=== PATIENT | female | born 1960 | race Caucasian/White ===

== ENCOUNTER → 2017-01-18 | Outpatient (REF) | payer OTHER ==
[~2017-01-18] MED LIST: FERR325T3 PO; MULTCAP PO; NORCOTAB PO; OYSCTAB PO; SOMA350T PO; VITA10002 PO; [UNRECOGNIZED DRUG - CODE] PO; valium OR; vitamin D OR
[2017-01-18 12:26] LABS: BASO % 0.6 % (0.0-1.0); EOS # 0.1 K/mm3 (0.0-0.50); EOS % 1.8 % (0.0-3.0); LARGE UNSTAINED CELL # 0.1 K/mm3 (0.0-0.4); LARGE UNSTAINED CELL % 1.9 % (0.0-4.0); LYMPH # 2.7 K/mm3 (1.5-4.5); LYMPH % 40.2 % (24.0-44.0); MEAN CORPUSCULAR HGB CONC 32.8 g/dl (32.0-36.5); MEAN CORPUSCULAR VOLUME 100.6 fl (80.0-96.0); MONO # 0.4 K/mm3 (0.0-0.8); NEUTROPHILS # 3.2 K/mm3 (1.8-7.7); NEUTROPHILS % 49.5 % (36.0-66.0); PLATELET COUNT, AUTOMATED 238 k/mm3 (150-450); RED CELL DISTRIBUTION WIDTH 13.3 % (11.5-14.5); WHITE BLOOD COUNT 6.4 K/mm3 (4.0-10.0)
[2017-01-18 12:58] LABS: ALBUMIN 3.7 GM/DL (3.2-5.2); ALBUMIN/GLOBULIN RATIO 1.32 (1.00-1.93); ALKALINE PHOSPHATASE 75 U/L (45-117); ALT/SGPT 21 U/L (12-78); ANION GAP 7 MEQ/L (8-16); AST/SGOT 15 U/L (15-37); BILIRUBIN,TOTAL 1.3 MG/DL (0.2-1.0); BLOOD UREA NITROGEN 23 MG/DL (7-18); CALCIUM LEVEL 8.3 MG/DL (8.5-10.1); CARBON DIOXIDE LEVEL 28 MEQ/L (21-32); CHLORIDE LEVEL 104 MEQ/L (98-107); CHOLESTEROL LEVEL 152 MG/DL (<200); CREATININE FOR GFR 0.84 MG/DL (0.55-1.02); GLOMERULAR FILTRATION RATE > 60.0 (>51); GLUCOSE, FASTING 81 MG/DL (70-105); POTASSIUM SERUM 4.2 MEQ/L (3.5-5.1); SODIUM LEVEL 139 MEQ/L (136-145); TOTAL PROTEIN 6.5 GM/DL (6.4-8.2); TRIGLYCERIDES LEVEL 73 MG/DL (<150)
[2017-01-18 13:11] LABS: FOLATE > 24.0 NG/ML; VITAMIN B12 LEVEL 1798 PG/ML
== END ==
LOC: M SFHCLERA 10:26
PROVIDERS: ATTEND Family Medicine
DX: I10 Essential (primary) hypertension (principal); E78.2 Mixed hyperlipidemia; E34.9 Endocrine disorder, unspecified; E55.9 Vitamin D deficiency, unspecified; D75.89 Other specified diseases of blood and blood-forming organs

== ENCOUNTER → 2017-02-16 | Outpatient (REF) | payer OTHER | LOC: M SFHCWAGY 13:42 | PROVIDERS: ATTEND Family Medicine | DX: Z12.4 Encounter for screening for malignant neoplasm of cervix (principal) ==

== ENCOUNTER → 2017-02-16 | Outpatient (CLI) | payer OTHER ==
--- NOTE | 2017-02-16 14:35 | REPMRS ---
Patient History The patient states she had a clinical breast exam in 02/2017. Patient is postmenopausal. Family history of breast cancer in paternal aunt at age 50 or over, breast cancer in paternal grandmother at age 50 or over, and breast cancer in maternal grandmother at age 50 or over. Benign cyst aspiration of the left breast, 2005. Digital Woman Screen Mammo: February 16, 2017 - Exam #: [id number] Bilateral CC and MLO view(s) were taken. Technologist: Alena Macedo, Technologist Prior study comparison: March 11, 2014, digital woman screen mammo performed at [facility] [employer] [facility]. January 03, 2013, digital woman screen mammo performed at [facility] [employer] [facility]. FINDINGS: There are scattered fibroglandular densities. There is a fairly symmetric fibroglandular pattern in both breasts. There has been no interval development of masses, areas of architectural distortion or clusters of microcalcifications typical of malignancy. ASSESSMENT: BI-RADS/ACR category 2 mammogram. Benign finding(s). Recommendation Routine screening mammogram of both breasts in 1 year (for women over age 40). This mammogram was interpreted with the aid of an FDA-approved computer-aided dectection system. Electronically Signed By: Allan Taylor MD 02/16/17 [id number]
== END ==
LOC: M WHC 13:10
PROVIDERS: ATTEND Family Medicine
DX: Z12.31 Encounter for screening mammogram for malignant neoplasm of breast (principal); Z78.0 Asymptomatic menopausal state; Z80.3 Family history of malignant neoplasm of breast

== ENCOUNTER → 2017-03-27 | Outpatient (CLI) | payer OTHER ==
--- NOTE | 2017-03-28 02:12 | REP ---
Clinical: Acute knee pain. Technique: AP, lateral, bilateral oblique and sunrise views of the right knee. Findings: Lateral and sunrise views demonstrate sclerosis along the posterior patellar margin with decreased patellofemoral joint space, superior and lateral patellar as well as lateral femoral condylar osteophyte formation suggesting mild/early moderate arthritic degenerative changes. The tibiofemoral joint appears relatively intact and grossly normal for age. No acute fracture or dislocation. Impression: Degenerative changes primarily involving the patellofemoral joint space. Signed by Ayo Solis MD 03/28/2017 02:03 A
== END ==
LOC: M LRY 14:01
PROVIDERS: ATTEND Physician Assistant
DX: M25.561 Pain in right knee (principal); M17.9 Osteoarthritis of knee, unspecified

== ENCOUNTER 2017-06-28 10:22 | Outpatient (RCR) | payer OTHER | END 2017-07-03 | LOC: M PT 10:22 | PROVIDERS: ATTEND Orthopaedic Surgery | DX: Z51.89 Encounter for other specified aftercare (principal); M17.11 Unilateral primary osteoarthritis, right knee; M25.561 Pain in right knee ==

== ENCOUNTER 2017-07-19 13:45 | Outpatient (RCR) | payer OTHER | END 2017-08-02 | LOC: M PT 13:45 | PROVIDERS: ATTEND Orthopaedic Surgery | DX: Z51.89 Encounter for other specified aftercare (principal); M17.11 Unilateral primary osteoarthritis, right knee; M25.561 Pain in right knee ==

== ENCOUNTER 2017-10-12 12:37 | Outpatient (CLI) | payer OTHER ==
[2017-10-12] MEDS: ACETAMINOPHEN TAB 650MG DOSE (2X325MG) PO (13:23)
[2017-10-12] MEDS: NS 1,000 ML IV (13:24)
[2017-10-12] MEDS: inFLIXimab INJECTION 500 MG in NS 200 ML IV (13:24)
== END 2017-10-12 15:45 | disposition home or self-care (01) ==
LOC: M INFU 12:37
DX: L40.50 Arthropathic psoriasis, unspecified (principal); Z79.899 Other long term (current) drug therapy; Z88.5 Allergy status to narcotic agent; Z91.040 Latex allergy status; Z91.048 Other nonmedicinal substance allergy status; Z78.0 Asymptomatic menopausal state; Z98.84 Bariatric surgery status
CPT/HCPCS: J1745

== ENCOUNTER → 2017-11-05 | Outpatient (CLI) | payer OTHER | LOC: M PLARAD 13:24 | DX: G57.00 Lesion of sciatic nerve, unspecified lower limb (principal); M70.51 Other bursitis of knee, right knee; M25.559 Pain in unspecified hip; M70.60 Trochanteric bursitis, unspecified hip; M50.30 Other cervical disc degeneration, unspecified cervical region; M51.34 Other intervertebral disc degeneration, thoracic region; M51.36 Other intervertebral disc degeneration, lumbar region; M51.26 Other intervertebral disc displacement, lumbar region; M51.24 Other intervertebral disc displacement, thoracic region; M50.20 Other cervical disc displacement, unspecified cervical region; M46.1 Sacroiliitis, not elsewhere classified; M79.7 Fibromyalgia; M96.1 Postlaminectomy syndrome, not elsewhere classified; M47.814 Spondylosis without myelopathy or radiculopathy, thoracic region; M47.817 Spondylosis without myelopathy or radiculopathy, lumbosacral region; M47.812 Spondylosis without myelopathy or radiculopathy, cervical region; M54.81 Occipital neuralgia | CPT/HCPCS: 72146 ==

== ENCOUNTER → 2017-11-19 | Outpatient (CLI) | payer OTHER | LOC: M PLARAD 08:58 | DX: M54.17 Radiculopathy, lumbosacral region (principal) | CPT/HCPCS: 72148 ==

== ENCOUNTER 2017-11-28 10:18 | Outpatient (CLI) | payer OTHER ==
[2017-11-28] MEDS: NS 1,000 ML IV (11:07)
[2017-11-28] MEDS: inFLIXimab INJECTION 500 MG in NS 200 ML IV (11:07)
== END 2017-11-28 13:45 | disposition home or self-care (01) ==
LOC: M INFU 10:18
DX: L40.59 Other psoriatic arthropathy (principal); Z79.899 Other long term (current) drug therapy; Z88.5 Allergy status to narcotic agent; Z91.040 Latex allergy status
CPT/HCPCS: J1745

== ENCOUNTER 2018-03-12 14:23 | Outpatient (CLI) | payer OTHER ==
[2018-03-12] MEDS ORDERED: NS 1,000 ML IV (14:45)
[2018-03-12] MEDS: FILTER 1.2 MICRON (ADULT TPN/MANNITOL/REMICADE) XX (14:45)
[2018-03-12] MEDS: ACETAMINOPHEN TAB 650MG DOSE (2X325MG) PO (15:12)
[2018-03-12] MEDS: inFLIXimab INJECTION 500 MG in NS 200 ML IV (15:23)
== END 2018-03-12 18:00 | disposition home or self-care (01) ==
LOC: M INFU 14:23
DX: L40.59 Other psoriatic arthropathy (principal); Z98.84 Bariatric surgery status; Z98.1 Arthrodesis status; Z88.5 Allergy status to narcotic agent; Z91.040 Latex allergy status; Z79.899 Other long term (current) drug therapy
CPT/HCPCS: J1745

== ENCOUNTER 2018-04-30 08:53 | Outpatient (CLI) | payer OTHER ==
[2018-04-30] MEDS: FILTER 1.2 MICRON (ADULT TPN/MANNITOL/REMICADE) XX (08:45)
[2018-04-30 09:24] LABS: HEMOGLOBIN 10.6 g/dl (12.0-15.5); MEAN CORPUSCULAR HEMOGLOBIN 31.4 pg (27.0-33.0); MEAN CORPUSCULAR HGB CONC 33.1 g/dl (32.0-36.5); MEAN CORPUSCULAR VOLUME 94.7 fl (80.0-96.0); PLATELET COUNT, AUTOMATED 231 10^3/uL (150-450); RED BLOOD COUNT 3.38 10^6/uL (4.00-5.40); RED CELL DISTRIBUTION WIDTH 14.4 % (11.5-14.5); RETICULOCYTE # 43.6 10^9/L (17-77); RETICULOCYTE % 1.3 % (0.5-1.5); WHITE BLOOD COUNT 5.2 10^3/uL (4.0-10.0)
[2018-04-30] MEDS: ACETAMINOPHEN TAB 650MG DOSE (2X325MG) PO (09:25)
[2018-04-30] MEDS: NS 1,000 ML IV (09:26)
[2018-04-30] MEDS: inFLIXimab INJECTION 500 MG in NS 200 ML IV (09:32)
[2018-04-30 09:57] LABS: ALBUMIN 3.7 GM/DL (3.2-5.2); ALBUMIN/GLOBULIN RATIO 1.12 (1.00-1.93); ALKALINE PHOSPHATASE 74 U/L (45-117); ALT/SGPT 22 U/L (12-78); ANION GAP 9 MEQ/L (8-16); AST/SGOT 19 U/L (7-37); BILIRUBIN,TOTAL 0.8 MG/DL (0.2-1.0); BLOOD UREA NITROGEN 19 MG/DL (7-18); CALCIUM LEVEL 8.4 MG/DL (8.5-10.1); CARBON DIOXIDE LEVEL 24 MEQ/L (21-32); CHLORIDE LEVEL 111 MEQ/L (98-107); CHOLESTEROL LEVEL 158 MG/DL (<200); CHOLESTEROL RISK RATIO 1.837 (<5); CREATININE FOR GFR 0.73 MG/DL (0.55-1.30); FERRITIN 10 NG/ML (8-252); GLOMERULAR FILTRATION RATE > 60.0 (>51); GLUCOSE, FASTING 87 MG/DL (70-100); HDL CHOLESTEROL 86 MG/DL (>40); NON-HDL-C 72 MG/DL; SODIUM LEVEL 144 MEQ/L (136-145); TRIGLYCERIDES LEVEL 70 MG/DL (<150)
[2018-05-01 08:15] LABS: PTH INTACT 56.8 PG/ML (18.5-88.0)
[2018-05-01 08:40] LABS: FOLATE > 24.0 NG/ML (>5.4); VITAMIN B12 LEVEL > 2000 PG/ML (247-911)
== END 2018-04-30 11:45 | disposition home or self-care (01) ==
LOC: M INFU 08:53
DX: L40.59 Other psoriatic arthropathy (principal); D50.9 Iron deficiency anemia, unspecified; M62.81 Muscle weakness (generalized); Z98.1 Arthrodesis status; Z87.440 Personal history of urinary (tract) infections; Z98.84 Bariatric surgery status; Z79.899 Other long term (current) drug therapy
CPT/HCPCS: J1745

== ENCOUNTER → 2018-06-13 | Outpatient (CLI) | payer OTHER | LOC: M LRY 09:22 | DX: L40.50 Arthropathic psoriasis, unspecified (principal); M19.041 Primary osteoarthritis, right hand; M19.042 Primary osteoarthritis, left hand | CPT/HCPCS: 73130 ==

== ENCOUNTER → 2018-06-13 | Outpatient (REF) | payer OTHER ==
[2018-06-13 11:54] LABS: BASO % 0.7 % (0.0-1.0); EOS # 0.1 10^3/uL (0.0-0.50); EOS % 1.3 % (0.0-3.0); HEMATOCRIT 31.6 % (36.0-47.0); HEMOGLOBIN 10.1 g/dl (12.0-15.5); IMMATURE GRANULOCYTE % 0.3 % (0-3.0); LYMPH # 1.9 10^3/uL (1.5-4.5); LYMPH % 31.4 % (24.0-44.0); MEAN CORPUSCULAR HEMOGLOBIN 31.3 pg (27.0-33.0); MEAN CORPUSCULAR VOLUME 97.8 fl (80.0-96.0); MONO # 0.5 10^3/uL (0.0-0.8); MONO % 8.4 % (0.0-5.0); NEUTROPHILS # 3.5 10^3/uL (1.8-7.7); NEUTROPHILS % 57.9 % (36.0-66.0); PLATELET COUNT, AUTOMATED 261 10^3/uL (150-450); RED BLOOD COUNT 3.23 10^6/uL (4.00-5.40); RED CELL DISTRIBUTION WIDTH 14.6 % (11.5-14.5); WHITE BLOOD COUNT 6.1 10^3/uL (4.0-10.0)
[2018-06-13 12:26] LABS: ERYTHROCYTE SEDIMENTATION RATE 38 mm/hr (0-30)
[2018-06-13 12:42] LABS: ALBUMIN 3.5 GM/DL (3.2-5.2); ALBUMIN/GLOBULIN RATIO 1.09 (1.00-1.93); ALKALINE PHOSPHATASE 73 U/L (45-117); ALT/SGPT 22 U/L (12-78); ANION GAP 6 MEQ/L (8-16); AST/SGOT 17 U/L (7-37); BLOOD UREA NITROGEN 13 MG/DL (7-18); C REACTIVE PROTEIN QUANTITATIV < 0.30 MG/DL (0.00-0.30); CALCIUM LEVEL 8.1 MG/DL (8.5-10.1); CARBON DIOXIDE LEVEL 26 MEQ/L (21-32); CHLORIDE LEVEL 112 MEQ/L (98-107); CREATININE FOR GFR 0.72 MG/DL (0.55-1.30); GLOMERULAR FILTRATION RATE > 60.0 (>51); GLUCOSE, FASTING 78 MG/DL (70-100); POTASSIUM SERUM 4.3 MEQ/L (3.5-5.1); SODIUM LEVEL 144 MEQ/L (136-145); TOTAL PROTEIN 6.7 GM/DL (6.4-8.2)
[2018-06-19 00:12] LABS: HLA-B27 Negative (.)
== END ==
LOC: M SFHCLERA 09:15
DX: L40.50 Arthropathic psoriasis, unspecified (principal)
CPT/HCPCS: 84443

== ENCOUNTER 2018-06-18 08:02 | Outpatient (CLI) | payer OTHER ==
[2018-06-18] MEDS: FILTER 1.2 MICRON (ADULT TPN/MANNITOL/REMICADE) XX (08:30)
[2018-06-18] MEDS: NS 1,000 ML IV (08:30)
[2018-06-18] MEDS: ACETAMINOPHEN TAB 650MG DOSE (2X325MG) PO (08:32)
[2018-06-18] MEDS: inFLIXimab INJECTION 500 MG in NS 200 ML IV (09:00)
== END 2018-06-18 11:30 ==
LOC: M INFU 08:02
DX: L40.59 Other psoriatic arthropathy (principal); Z91.040 Latex allergy status; Z88.5 Allergy status to narcotic agent
CPT/HCPCS: J1745

== ENCOUNTER 2018-08-13 08:33 | Outpatient (CLI) | payer OTHER ==
[2018-08-13] MEDS: diphenhydrAMINE 25MG PO PRIOR TO INFUSION PO (08:51)
[2018-08-13] MEDS: ACETAMINOPHEN 650MG PO PRIOR TO INFUSION PO (08:51)
[2018-08-13] MEDS ORDERED: NS 1,000 ML IV (09:00)
[2018-08-13] MEDS: inFLIXimab INJECTION 500 MG in NS 200 ML IV (09:52)
[2018-08-13] MEDS: FILTER 1.2 MICRON (ADULT TPN/MANNITOL/REMICADE) XX (09:52)
== END 2018-08-13 12:30 | disposition home or self-care (01) ==
LOC: M INFU 08:33
DX: M15.9 Polyosteoarthritis, unspecified (principal)
CPT/HCPCS: J1745

== ENCOUNTER → 2018-08-21 | Outpatient (REF) | payer OTHER ==
[~2018-08-21] MED LIST changes: +BACL10TA2 PO; +CITRTAB18 PO; +FISH5CAP PO; +LIPI10TA PO; +LOSA50TA73 PO; +NEUR300C PO; +SPIR-10 PO; +VITA500064 PO
[2018-08-21 14:02] LABS: BASO # 0.1 10^3/uL (0.0-0.2); BASO % 1.4 % (0.0-1.0); EOS # 0.1 10^3/uL (0.0-0.50); EOS % 1.2 % (0.0-3.0); HEMATOCRIT 31.9 % (36.0-47.0); HEMOGLOBIN 10.1 g/dl (12.0-15.5); LYMPH # 2.7 10^3/uL (1.5-4.5); LYMPH % 46.7 % (24.0-44.0); MEAN CORPUSCULAR HEMOGLOBIN 30.4 pg (27.0-33.0); MEAN CORPUSCULAR HGB CONC 31.7 g/dl (32.0-36.5); MEAN CORPUSCULAR VOLUME 96.1 fl (80.0-96.0); MONO # 0.4 10^3/uL (0.0-0.8); MONO % 7.4 % (0.0-5.0); NEUTROPHILS # 2.4 10^3/uL (1.8-7.7); NEUTROPHILS % 42.9 % (36.0-66.0); PLATELET COUNT, AUTOMATED 251 10^3/uL (150-450); RED BLOOD COUNT 3.32 10^6/uL (4.00-5.40); WHITE BLOOD COUNT 5.7 10^3/uL (4.0-10.0)
[2018-08-21 14:27] LABS: ALBUMIN 3.9 GM/DL (3.2-5.2); ALT/SGPT 24 U/L (12-78); BILIRUBIN,TOTAL 1.2 MG/DL (0.2-1.0); BLOOD UREA NITROGEN 16 MG/DL (7-18); C REACTIVE PROTEIN QUANTITATIV < 0.30 MG/DL (0.00-0.30); CALCIUM LEVEL 8.8 MG/DL (8.5-10.1); CARBON DIOXIDE LEVEL 28 MEQ/L (21-32); CHLORIDE LEVEL 106 MEQ/L (98-107); CREATININE FOR GFR 0.63 MG/DL (0.55-1.30); GLOMERULAR FILTRATION RATE > 60.0 (>51); GLUCOSE, FASTING 78 MG/DL (70-100); POTASSIUM SERUM 3.9 MEQ/L (3.5-5.1); SODIUM LEVEL 141 MEQ/L (136-145)
[2018-08-21 14:35] LABS: HEPATITIS B SURFACE ANTIBODY NEGATIVE (POSITIVE)
[2018-08-21 14:39] LABS: ERYTHROCYTE SEDIMENTATION RATE 35 mm/hr (0-30)
[2018-08-21 14:45] LABS: HEPATITIS B SURFACE ANTIGEN NEGATIVE (NEGATIVE)
[2018-08-21 15:14] LABS: HEPATITIS C VIRUS ABY INDEX 0.1 INDEX (<0.8)
== END ==
LOC: M SFHCPLAZ 11:13
PROVIDERS: ATTEND Internal Medicine Rheumatology
DX: L40.50 Arthropathic psoriasis, unspecified (principal)

== ENCOUNTER → 2018-10-17 | Outpatient (REF) | payer OTHER ==
[~2018-10-17] MED LIST changes: -LOSA50TA73 PO; +LOSA50TA88 PO
[2018-10-17 14:16] LABS: FERRITIN 8 NG/ML (8-252); IRON (FE) 54 UG/DL (50-170); PERCENT SATURATION 11.9 % (13.2-45.0); TOTAL IRON BINDING CAPACITY 452 UG/DL (250-450); TOTAL PROTEIN 7.2 GM/DL (6.4-8.2)
[2018-10-19 00:08] LABS: FREE KAPPA LIGHT CHAINS SERUM 17.3 mg/L (3.3-19.4); FREE LAMBDA LIGHT CHAINS SERUM 16.4 mg/L (5.7-26.3); KAPPA/LAMBDA RATIO SERUM 1.05 (0.26-1.65)
[2018-10-23 06:59] LABS: ALBUMIN 4.28 GM/DL (3.29-5.55); ALBUMIN % 59.5 % (55.8-66.1); ALPHA-1-GLOBULIN % 4.3 % (2.9-4.9); ALPHA-1-GLOBULINS 0.31 GM/DL (0.17-0.41); ALPHA-2-GLOBULINS 0.86 GM/DL (0.42-0.99); BETA-1-GLOBULINS % 6.9 % (4.7-7.2); BETA-2-GLOBULINS 0.33 GM/DL (0.19-0.55); BETA-2-GLOBULINS % 4.6 % (3.2-6.5); GAMMA GLOBULIN % 12.7 % (11.1-18.8); GAMMA GLOBULINS 0.91 GM/DL (0.65-1.58)
== END ==
LOC: M SFHCADAM 09:13
PROVIDERS: ATTEND Family Medicine
DX: D64.9 Anemia, unspecified (principal)

== ENCOUNTER → 2018-10-30 | Outpatient (REF) | payer OTHER ==
[2018-10-30 14:12] LABS: BASO # 0.1 10^3/uL (0.0-0.2); BASO % 0.7 % (0.0-1.0); EOS # 0.1 10^3/uL (0.0-0.50); EOS % 1.2 % (0.0-3.0); HEMATOCRIT 31.2 % (36.0-47.0); HEMOGLOBIN 10.3 g/dl (12.0-15.5); LYMPH # 3.1 10^3/uL (1.5-4.5); LYMPH % 35.5 % (24.0-44.0); MEAN CORPUSCULAR HEMOGLOBIN 30.6 pg (27.0-33.0); MEAN CORPUSCULAR VOLUME 92.6 fl (80.0-96.0); MONO # 0.6 10^3/uL (0.0-0.8); MONO % 6.3 % (0.0-5.0); NEUTROPHILS # 4.9 10^3/uL (1.8-7.7); NEUTROPHILS % 56.1 % (36.0-66.0); PLATELET COUNT, AUTOMATED 250 10^3/uL (150-450); RED BLOOD COUNT 3.37 10^6/uL (4.00-5.40); WHITE BLOOD COUNT 8.8 10^3/uL (4.0-10.0)
[2018-10-30 14:34] LABS: ALBUMIN 3.9 GM/DL (3.2-5.2); ALT/SGPT 27 U/L (12-78); BILIRUBIN,TOTAL 1.1 MG/DL (0.2-1.0); BLOOD UREA NITROGEN 16 MG/DL (7-18); C REACTIVE PROTEIN QUANTITATIV < 0.30 MG/DL (0.00-0.30); CALCIUM LEVEL 8.4 MG/DL (8.5-10.1); CARBON DIOXIDE LEVEL 27 MEQ/L (21-32); CHLORIDE LEVEL 106 MEQ/L (98-107); CREATININE FOR GFR 0.72 MG/DL (0.55-1.30); GLOMERULAR FILTRATION RATE > 60.0 (>51); GLUCOSE, FASTING 113 MG/DL (70-100); POTASSIUM SERUM 3.9 MEQ/L (3.5-5.1); SODIUM LEVEL 140 MEQ/L (136-145); TOTAL PROTEIN 6.8 GM/DL (6.4-8.2)
[2018-10-30 14:45] LABS: ERYTHROCYTE SEDIMENTATION RATE 37 mm/hr (0-30)
== END ==
LOC: M SFHCPLAZ 13:11
PROVIDERS: ATTEND Internal Medicine Rheumatology
DX: L40.50 Arthropathic psoriasis, unspecified (principal)

== ENCOUNTER → 2018-11-25 | Outpatient (REF) | payer OTHER ==
[2018-11-25 20:48] LABS: BLOOD UREA NITROGEN 10 MG/DL (7-18); CALCIUM LEVEL 8.9 MG/DL (8.5-10.1); CARBON DIOXIDE LEVEL 28 MEQ/L (21-32); CHLORIDE LEVEL 109 MEQ/L (98-107); CREATININE FOR GFR 0.63 MG/DL (0.55-1.30); GLOMERULAR FILTRATION RATE > 60.0 (>51); GLUCOSE, FASTING 83 MG/DL (70-100); PHOSPHORUS LEVEL 4.2 MG/DL (2.5-4.9); SODIUM LEVEL 143 MEQ/L (136-145)
== END ==
LOC: M LABDRWAD 18:58
PROVIDERS: ATTEND Physician Assistant
DX: I49.1 Atrial premature depolarization (principal)

== ENCOUNTER 2018-12-04 11:27 | Outpatient (CLI) | payer OTHER ==
[~2018-12-04 11:27] MED LIST changes: +HYDR-3715 PO; -NORCOTAB PO
[2018-12-04 11:30] VITALS: BP 130/68
[2018-12-04] MEDS ORDERED: NS 1,000 ML IV SCH (12:00)
[2018-12-04] MEDS ORDERED: FLEC1TAB PO (12:01)
[2018-12-04] MEDS ORDERED: FILTER 1.2 MICRON (ADULT TPN/MANNITOL/REMICADE) XX ONE (12:15)
[2018-12-04] MEDS ORDERED: ALBUTEROL SULFATE 2.5 MG/0.5 ML INH NEB SOLN INH PRN (12:30)
[2018-12-04] MEDS ORDERED: methylPREDNISolone INJ 125 MG/2 ML VIAL (J2930) IV PRN (12:30)
[2018-12-04] MEDS ORDERED: EPINEPHrine INJ 1 MG/ML 1ML AMP IM PRN (12:30)
[2018-12-04] MEDS ORDERED: ACETAMINOPHEN 650MG ER TAB (TYLENOL ARTHRITIS) PO ONE (12:30)
[2018-12-04] MEDS ORDERED: diphenhydrAMINE 25MG PO PRIOR TO INFUSION PO ONE (12:30)
[2018-12-04] MEDS ORDERED: diphenhydrAMINE INJ 50MG/ML VIAL (J1200) IV PRN (12:30)
[2018-12-04 12:35] VITALS: BP 130/74
[2018-12-04 12:50] VITALS: BP 119/70
[2018-12-04] MEDS ORDERED: inFLIXimab INJECTION 400 MG in NS 210 ML IV ONE (13:00)
== END 2018-12-04 13:50 | disposition home or self-care (01) ==
LOC: M INFU 11:27
PROVIDERS: ATTEND Internal Medicine Rheumatology
DX: L40.50 Arthropathic psoriasis, unspecified (principal); Z88.5 Allergy status to narcotic agent; Z91.040 Latex allergy status
CPT/HCPCS: 96413; J1745

== ENCOUNTER → 2018-12-24 | Outpatient (REF) | payer OTHER ==
[~2018-12-24] MED LIST changes: +FLEC1TAB PO
[2018-12-24 15:17] LABS: BASO # 0.1 10^3/uL (0.0-0.2); BASO % 0.5 % (0.0-1.0); EOS # 0.1 10^3/uL (0.0-0.50); EOS % 0.4 % (0.0-3.0); HEMATOCRIT 33.1 % (36.0-47.0); HEMOGLOBIN 10.7 g/dl (12.0-15.5); LYMPH # 3.1 10^3/uL (1.5-4.5); LYMPH % 22.3 % (24.0-44.0); MEAN CORPUSCULAR HEMOGLOBIN 31.7 pg (27.0-33.0); MEAN CORPUSCULAR HGB CONC 32.3 g/dl (32.0-36.5); MEAN CORPUSCULAR VOLUME 97.9 fl (80.0-96.0); MONO # 0.7 10^3/uL (0.0-0.8); MONO % 5.1 % (0.0-5.0); NEUTROPHILS # 9.8 10^3/uL (1.8-7.7); NEUTROPHILS % 71.4 % (36.0-66.0); PLATELET COUNT, AUTOMATED 276 10^3/uL (150-450); RED BLOOD COUNT 3.38 10^6/uL (4.00-5.40); WHITE BLOOD COUNT 13.7 10^3/uL (4.0-10.0)
[2018-12-24 15:25] LABS: ALBUMIN 3.8 GM/DL (3.2-5.2); ALT/SGPT 30 U/L (12-78); BILIRUBIN,TOTAL 1.6 MG/DL (0.2-1.0); BLOOD UREA NITROGEN 15 MG/DL (7-18); C REACTIVE PROTEIN QUANTITATIV < 0.30 MG/DL (0.00-0.30); CALCIUM LEVEL 8.6 MG/DL (8.5-10.1); CARBON DIOXIDE LEVEL 31 MEQ/L (21-32); CHLORIDE LEVEL 107 MEQ/L (98-107); CREATININE FOR GFR 0.72 MG/DL (0.55-1.30); GLOMERULAR FILTRATION RATE > 60.0 (>51); GLUCOSE, FASTING 79 MG/DL (70-100); POTASSIUM SERUM 3.7 MEQ/L (3.5-5.1); SODIUM LEVEL 142 MEQ/L (136-145); TOTAL PROTEIN 7.1 GM/DL (6.4-8.2)
[2018-12-24 16:26] LABS: ERYTHROCYTE SEDIMENTATION RATE 27 mm/hr (0-30)
== END ==
LOC: M SFHCPLAZ 10:13
PROVIDERS: ATTEND Internal Medicine Rheumatology
DX: L40.50 Arthropathic psoriasis, unspecified (principal); R00.2 Palpitations

== ENCOUNTER → 2019-01-07 | Outpatient (REF) | payer OTHER ==
[2019-01-07 14:18] LABS: BASO % 0.7 % (0.0-1.0); EOS # 0.1 10^3/uL (0.0-0.50); EOS % 0.9 % (0.0-3.0); HEMATOCRIT 34.5 % (36.0-47.0); HEMOGLOBIN 11.2 g/dl (12.0-15.5); LYMPH # 2.3 10^3/uL (1.5-4.5); LYMPH % 41.2 % (24.0-44.0); MEAN CORPUSCULAR HEMOGLOBIN 32.1 pg (27.0-33.0); MEAN CORPUSCULAR HGB CONC 32.5 g/dl (32.0-36.5); MEAN CORPUSCULAR VOLUME 98.9 fl (80.0-96.0); MONO # 0.3 10^3/uL (0.0-0.8); MONO % 5.9 % (0.0-5.0); NEUTROPHILS # 2.9 10^3/uL (1.8-7.7); NEUTROPHILS % 50.9 % (36.0-66.0); PLATELET COUNT, AUTOMATED 243 10^3/uL (150-450); RED BLOOD COUNT 3.49 10^6/uL (4.00-5.40); WHITE BLOOD COUNT 5.6 10^3/uL (4.0-10.0)
== END ==
LOC: M SFHCADAM 12:12
PROVIDERS: ATTEND Family Medicine
DX: D72.829 Elevated white blood cell count, unspecified (principal)

== ENCOUNTER → 2019-02-26 | Outpatient (REF) | payer OTHER | LOC: M SFHCADAM 12:24 | PROVIDERS: ATTEND Family Medicine | DX: N39.0 Urinary tract infection, site not specified (principal) ==

== ENCOUNTER → 2019-03-27 | Outpatient (CLI) | payer OTHER ==
[~2019-03-27] MED LIST changes: +CYAN100049 PO; -VITA10002 PO
[2019-03-27 13:27] LABS: BASO # 0.1 10^3/uL (0.0-0.2); BASO % 0.9 % (0.0-1.0); EOS # 0.1 10^3/uL (0.0-0.50); HEMATOCRIT 33.9 % (36.0-47.0); HEMOGLOBIN 11.2 g/dl (12.0-15.5); LYMPH # 2.4 10^3/uL (1.5-4.5); LYMPH % 41.9 % (24.0-44.0); MEAN CORPUSCULAR HEMOGLOBIN 32.5 pg (27.0-33.0); MEAN CORPUSCULAR VOLUME 98.3 fl (80.0-96.0); MONO # 0.5 10^3/uL (0.0-0.8); MONO % 8.7 % (0.0-5.0); NEUTROPHILS # 2.7 10^3/uL (1.8-7.7); NEUTROPHILS % 47.3 % (36.0-66.0); PLATELET COUNT, AUTOMATED 228 10^3/uL (150-450); RED BLOOD COUNT 3.45 10^6/uL (4.00-5.40); WHITE BLOOD COUNT 5.8 10^3/uL (4.0-10.0)
[2019-03-27 14:05] LABS: ALBUMIN 3.7 GM/DL (3.2-5.2); ALT/SGPT 25 U/L (12-78); BILIRUBIN,TOTAL 1.1 MG/DL (0.2-1.0); BLOOD UREA NITROGEN 15 MG/DL (7-18); C REACTIVE PROTEIN QUANTITATIV < 0.30 MG/DL (0.00-0.30); CALCIUM LEVEL 8.9 MG/DL (8.8-10.2); CARBON DIOXIDE LEVEL 27 MEQ/L (21-32); CHLORIDE LEVEL 110 MEQ/L (98-107); CREATININE FOR GFR 0.62 MG/DL (0.55-1.30); GLOMERULAR FILTRATION RATE > 60.0 (>45); GLUCOSE, FASTING 93 MG/DL (70-100); POTASSIUM SERUM 3.9 MEQ/L (3.5-5.1); RHEUMATOID FACTOR QUANT < 10.0 IU/ML (<15.0); SODIUM LEVEL 141 MEQ/L (136-145); TOTAL PROTEIN 6.7 GM/DL (6.4-8.2); URIC ACID 4.3 MG/DL (2.6-6.0)
[2019-03-27 14:06] LABS: ERYTHROCYTE SEDIMENTATION RATE 34 mm/hr (0-30)
--- NOTE | 2019-03-28 07:54 | REP ---
Clinical: History of psoriatic arthritis. Technique: AP, lateral, bilateral oblique views of the right and left hand. Findings: Right hand demonstrates subchondral sclerosis, joint space narrowing, marginal spurring/early gull-wing deformity involving the distal interphalangeal joints along with subchondral sclerosis and joint space narrowing at the proximal interphalangeal joints and to a lesser extent the metacarpal phalangeal joints. Mild swelling overlies the DIP joints. Left hand demonstrates subchondral sclerosis, joint space narrowing, marginal spurring/early gull-wing deformity involving the distal interphalangeal joints along with subchondral sclerosis and joint space narrowing at the proximal interphalangeal joints and to a lesser extent the metacarpal phalangeal joints. Mild swelling overlies the DIP joints. Impression: Moderate arthritic changes (left greater than right). Electronically Signed by Ayo Solis MD 03/28/2019 07:45 A
--- NOTE | 2019-03-28 07:55 | REP ---
Clinical: Psoriatic arthritis. Technique: Single AP weightbearing view of the right and left knee. Findings: Subchondral sclerosis and joint space narrowing noted of the bilateral medial tibiofemoral joint spaces. Mild marginal early osteophyte formation noted bilaterally. No chondrocalcinosis. No erosive changes. No acute fracture. Impression: Mild arthritic degenerative changes as noted above. Electronically Signed by Ayo Solis MD 03/28/2019 07:46 A
== END ==
LOC: M LAB 12:44
PROVIDERS: ATTEND Internal Medicine Rheumatology
DX: L40.50 Arthropathic psoriasis, unspecified (principal)

== ENCOUNTER 2019-04-21 11:24 | Day surgery (SDC) | payer OTHER ==
[~2019-04-21] VITALS: Ht 147.3 cm; Wt 64.0 kg
[~2019-04-21 11:24] MED LIST changes: +INFL10VL IV; +KP F1200 PO
--- NOTE | 2019-04-21 13:43 | ROOR ---
Patient Name: Juana Montelongo Procedure Date: 04/21/2019 1:32 PM Date of : 1960 Age: 59 Room: [facility] Gender: Female Note Status: Finalized Procedure: Upper Endoscopy + Biopsies Indications: Iron deficiency anemia Providers: Zen Solis MD Referring MD: Romain Pacheco MD Requesting Provider: Medicines: Monitored Anesthesia Care Complications: No immediate complications. Procedure: Pre-Anesthesia Assessment: - The heart rate, respiratory rate, oxygen saturations, blood pressure, adequacy of pulmonary ventilation, and response to care were monitored throughout the procedure. The Endoscope was introduced through the mouth, and advanced to the second part of duodenum. The upper GI endoscopy was accomplished without difficulty. The patient tolerated the procedure well. Findings: The Z-line was regular and was found 38 cm from the incisors. Multiple biopsies were obtained with cold forceps for evaluation to rule out Rizvi's Esophagus randomly at the gastroesophageal junction. A small hiatal hernia was present. Evidence of a gastric bypass was found. A gastric pouch with a small size was found. The staple line appeared intact. The gastrojejunal anastomosis was characterized by healthy appearing mucosa. The exam was otherwise without abnormality. Impression: - Z-line regular, 38 cm from the incisors. - Small hiatal hernia. - Gastric bypass with a small-sized pouch and intact staple line. Gastrojejunal anastomosis characterized by healthy appearing mucosa. - The examination was otherwise normal. - Multiple biopsies were obtained at the gastroesophageal junction. Recommendation: - Patient has a contact number available for emergencies. The signs and symptoms of potential delayed complications were discussed with the patient. Return to normal activities tomorrow. Written discharge instructions were provided to the patient. - High fiber diet. - Discharge patient to home. - Continue present medications. - Return to referring physician. - The findings and recommendations were discussed with the patient's family. Zen Solis MD Zen Solis MD 04/21/2019 1:42:57 PM Electronically signed by Zen Solis MD Number of Addenda: 0 Note Initiated On: 04/21/2019 1:32 PM Estimated Blood Loss: Estimated blood loss: none.
--- NOTE | 2019-04-21 14:00 | ROOR ---
Patient Name: Juana Montelongo Procedure Date: 04/21/2019 1:33 PM Date of : 1960 Age: 59 Room: [facility] Gender: Female Note Status: Finalized Procedure: Total Colonoscopy to Cecum Indications: Iron deficiency anemia Providers: Zen Solis MD Referring MD: Romain Pacheco MD Requesting Provider: Medicines: Monitored Anesthesia Care Complications: No immediate complications. Procedure: Pre-Anesthesia Assessment: - The heart rate, respiratory rate, oxygen saturations, blood pressure, adequacy of pulmonary ventilation, and response to care were monitored throughout the procedure. The Colonoscope was introduced through the anus and advanced to the cecum, identified by appendiceal orifice and ileocecal valve. The colonoscopy was performed without difficulty. The patient tolerated the procedure well. The quality of the bowel preparation was good. Findings: The perianal and digital rectal examinations were normal. Non-bleeding internal hemorrhoids were found during retroflexion. The hemorrhoids were small and Grade I (internal hemorrhoids that do not prolapse). No other significant abnormalities were identified in a careful examination of the remainder of the colon. The exam was otherwise without abnormality on direct and retroflexion views. Impression: - Non-bleeding internal hemorrhoids. - The examination was otherwise normal on direct and retroflexion views. - No specimens collected. - The exam was otherwise normal to the cecum. Recommendation: - Patient has a contact number available for emergencies. The signs and symptoms of potential delayed complications were discussed with the patient. Return to normal activities tomorrow. Written discharge instructions were provided to the patient. - High fiber diet. - Discharge patient to home. - Continue present medications. - Repeat colonoscopy in 10 years for screening purposes. - Return to referring physician. - The findings and recommendations were discussed with the patient's family. Zen Solis MD Zen Solis MD 04/21/2019 1:59:27 PM Electronically signed by Zen Solis MD Number of Addenda: 0 Note Initiated On: 04/21/2019 1:33 PM Estimated Blood Loss: Estimated blood loss: none.
[2019-04-21] MEDS ORDERED: PROPOFOL 200 MG/20 ML VIAL As Ordered ONE (14:16)
[2019-04-21] MEDS ORDERED: LIDOCAINE 2% INJ 100 MG/5 ML SDV (FOR ANES.) As Ordered ONE (14:16)
[2019-04-21 14:35] VITALS: BP 142/75
[2019-04-21] MEDS ORDERED: NS 1,000 ML IV ONE (15:00)
== END 2019-04-21 14:51 | disposition home or self-care (01) ==
LOC: M OPP 11:24
PROVIDERS: ATTEND Internal Medicine Gastroenterology
DX: K64.0 First degree hemorrhoids (principal); K44.9 Diaphragmatic hernia without obstruction or gangrene; D50.9 Iron deficiency anemia, unspecified; Z98.84 Bariatric surgery status; Z79.82 Long term (current) use of aspirin; Z79.891 Long term (current) use of opiate analgesic; Z79.899 Other long term (current) drug therapy; Z88.5 Allergy status to narcotic agent; Z91.040 Latex allergy status

== ENCOUNTER → 2019-05-07 | Outpatient (CLI) | payer OTHER ==
[2019-05-07 16:47] LABS: BASO # 0.1 10^3/uL (0.0-0.2); BASO % 0.6 % (0.0-1.0); EOS # 0.1 10^3/uL (0.0-0.5); EOS % 0.9 % (0.0-3.0); HEMATOCRIT 33.5 % (36.0-47.0); HEMOGLOBIN 11.2 g/dl (12.0-15.5); LYMPH # 2.9 10^3/uL (1.5-5.0); LYMPH % 36.7 % (24.0-44.0); MEAN CORPUSCULAR HEMOGLOBIN 34.7 pg (27.0-33.0); MEAN CORPUSCULAR HGB CONC 33.4 g/dl (32.0-36.5); MEAN CORPUSCULAR VOLUME 103.7 fl (80.0-96.0); MONO # 0.5 10^3/uL (0.0-0.8); MONO % 6.9 % (0.0-5.0); NEUTROPHILS # 4.3 10^3/uL (1.5-8.5); NEUTROPHILS % 54.6 % (36.0-66.0); PLATELET COUNT, AUTOMATED 259 10^3/uL (150-450); RED BLOOD COUNT 3.23 10^6/uL (4.00-5.40); WHITE BLOOD COUNT 7.9 10^3/uL (4.0-10.0)
[2019-05-07 17:15] LABS: ALBUMIN 3.7 GM/DL (3.2-5.2); ALT/SGPT 23 U/L (12-78); BILIRUBIN,TOTAL 0.9 MG/DL (0.2-1.0); BLOOD UREA NITROGEN 17 MG/DL (7-18); C REACTIVE PROTEIN QUANTITATIV < 0.30 MG/DL (0.00-0.30); CALCIUM LEVEL 8.9 MG/DL (8.8-10.2); CARBON DIOXIDE LEVEL 29 MEQ/L (21-32); CHLORIDE LEVEL 109 MEQ/L (98-107); CREATININE FOR GFR 0.69 MG/DL (0.55-1.30); GLOMERULAR FILTRATION RATE > 60.0 (>45); GLUCOSE, FASTING 83 MG/DL (70-100); SODIUM LEVEL 141 MEQ/L (136-145); TOTAL PROTEIN 6.7 GM/DL (6.4-8.2)
[2019-05-07 17:17] LABS: ERYTHROCYTE SEDIMENTATION RATE 27 mm/hr (0-30)
== END ==
LOC: M LAB 16:07
PROVIDERS: ATTEND Internal Medicine Rheumatology
DX: M19.90 Unspecified osteoarthritis, unspecified site (principal)

== ENCOUNTER → 2019-08-08 | Outpatient (CLI) | payer OTHER ==
--- NOTE | 2019-08-08 08:53 | REPPI ---
Clinical: Cough . Comparison: 11/24/2014 . Technique: PA and lateral. Findings: The mediastinum and cardiac silhouette are normal. The lung duarte are clear and without acute consolidation, effusion, or pneumothorax. The skeletal structures are intact and normal. Evidence for anterior cervical fusion. Impression: 1. No acute cardiopulmonary process. Electronically Signed by Ayo Solis MD 08/08/2019 08:44 A
== END ==
LOC: M PLAIMG 08:27
PROVIDERS: ATTEND Family Medicine
DX: R05 Cough (principal)

== ENCOUNTER → 2019-11-07 | Outpatient (REF) | payer OTHER ==
[2019-11-07 13:00] LABS: BASO % 0.8 % (0.0-1.0); EOS # 0.1 10^3/uL (0.0-0.5); EOS % 1.7 % (0.0-3.0); HEMATOCRIT 37.2 % (36.0-47.0); HEMOGLOBIN 12.1 g/dl (12.0-15.5); LYMPH # 1.6 10^3/uL (1.5-5.0); LYMPH % 30.8 % (24.0-44.0); MEAN CORPUSCULAR HEMOGLOBIN 32.9 pg (27.0-33.0); MEAN CORPUSCULAR HGB CONC 32.5 g/dl (32.0-36.5); MEAN CORPUSCULAR VOLUME 101.1 fl (80.0-96.0); MONO # 0.4 10^3/uL (0.0-0.8); MONO % 7.9 % (0.0-5.0); NEUTROPHILS % 58.6 % (36.0-66.0); PLATELET COUNT, AUTOMATED 264 10^3/uL (150-450); RED BLOOD COUNT 3.68 10^6/uL (4.00-5.40); WHITE BLOOD COUNT 5.2 10^3/uL (4.0-10.0)
[2019-11-07 13:01] LABS: ALBUMIN 4.2 GM/DL (3.2-5.2); ALT/SGPT 22 U/L (12-78); BILIRUBIN,TOTAL 1.4 MG/DL (0.2-1.0); BLOOD UREA NITROGEN 16 MG/DL (7-18); C REACTIVE PROTEIN QUANTITATIV < 0.30 MG/DL (0.00-0.30); CARBON DIOXIDE LEVEL 30 MEQ/L (21-32); CHLORIDE LEVEL 105 MEQ/L (98-107); CREATININE FOR GFR 0.71 MG/DL (0.55-1.30); GLOMERULAR FILTRATION RATE > 60.0 (>45); GLUCOSE, FASTING 87 MG/DL (70-100); POTASSIUM SERUM 4.1 MEQ/L (3.5-5.1); SODIUM LEVEL 140 MEQ/L (136-145); TOTAL PROTEIN 7.2 GM/DL (6.4-8.2)
[2019-11-07 13:21] LABS: ERYTHROCYTE SEDIMENTATION RATE 25 mm/hr (0-30)
== END ==
LOC: M SFHCRHEU 09:10
PROVIDERS: ATTEND Internal Medicine
DX: M15.4 Erosive (osteo)arthritis (principal)

== ENCOUNTER → 2020-02-04 | Outpatient (REF) | payer OTHER ==
[2020-02-04 17:15] LABS: HEMATOCRIT 34.8 % (36.0-47.0); HEMOGLOBIN 11.8 g/dl (12.0-15.5); MEAN CORPUSCULAR HEMOGLOBIN 33.9 pg (27.0-33.0); MEAN CORPUSCULAR HGB CONC 33.9 g/dl (32.0-36.5); PLATELET COUNT, AUTOMATED 267 10^3/uL (150-450); RED BLOOD COUNT 3.48 10^6/uL (4.00-5.40); WHITE BLOOD COUNT 7.3 10^3/uL (4.0-10.0)
[2020-02-04 17:51] LABS: ALBUMIN 4.1 GM/DL (3.2-5.2); ALT/SGPT 30 U/L (12-78); BILIRUBIN,TOTAL 1.2 MG/DL (0.2-1.0); BLOOD UREA NITROGEN 15 MG/DL (7-18); CALCIUM LEVEL 9.1 MG/DL (8.8-10.2); CARBON DIOXIDE LEVEL 32 MEQ/L (21-32); CHLORIDE LEVEL 102 MEQ/L (98-107); CHOLESTEROL LEVEL 169 MG/DL (<200); CHOLESTEROL RISK RATIO 2.086 (<5); CREATININE FOR GFR 0.78 MG/DL (0.55-1.30); FERRITIN 17 NG/ML (8-252); FREE T4 0.94 NG/DL (0.76-1.46); GLOMERULAR FILTRATION RATE > 60.0 (>45); GLUCOSE, FASTING 82 MG/DL (70-100); HDL CHOLESTEROL 81 MG/DL (>40); IRON (FE) 53 UG/DL (50-170); LDL CHOLESTEROL 72 MG/DL (<100); NON-HDL-C 88 MG/DL; PERCENT SATURATION 13.8 % (13.2-45.0); SODIUM LEVEL 142 MEQ/L (136-145); TOTAL IRON BINDING CAPACITY 385 UG/DL (250-450); TOTAL PROTEIN 7.1 GM/DL (6.4-8.2); TRIGLYCERIDES LEVEL 80 MG/DL (<150)
[2020-02-04 17:52] LABS: TOTAL 25(OH) VITAMIN D 38.2 NG/ML (30.0-100.0); VITAMIN B12 LEVEL > 2000 PG/ML (247-911)
[2020-02-04 17:53] LABS: FOLATE > 24.0 NG/ML (>5.4)
== END ==
LOC: M SFHCADAM 12:02
PROVIDERS: ATTEND Family Medicine
DX: Z98.84 Bariatric surgery status (principal); D64.9 Anemia, unspecified; E78.2 Mixed hyperlipidemia; E55.9 Vitamin D deficiency, unspecified

== ENCOUNTER → 2020-07-15 | Outpatient (CLI) | payer OTHER ==
--- NOTE | 2020-07-15 17:52 | REPPI ---
INDICATION: M50.20 CERVICAL DISC DISPLACEMENT. COMPARISON: 04/04/2016 TECHNIQUE: Three views FINDINGS: On the open-mouth view the dens and lateral masses of C1 align normally. AP view shows no torticollis plate screw fixation from C4 through C6 block fusion of these 3 vertebral bodies. Some loss of lordosis noted. C2-3 and C3-4 disc levels are maintained there is no compression deformity or focal lesion. Slight narrowing of C6-7 with anterior osteophytes superior endplate of C7. No prevertebral swelling. Posterior elements suggest fusion of the facets at C4-5 on the lateral view. Vertebral bodies without hardware failure. The lateral view shows IMPRESSION: Status post C4-6 anterior discectomy and fusion with plate and screw fixation. Solid fusion of the C4-5 and C5-6 disc levels and no hardware failure. Slight loss of lordosis but no compression deformity or malalignment. <Electronically signed by Mau Nick > 07/15/20 [id number]
== END ==
LOC: M PLAIMG 11:16
PROVIDERS: ATTEND Nurse Practitioner Family
DX: M43.22 Fusion of spine, cervical region (principal)

== ENCOUNTER → 2020-10-04 | Outpatient (REF) | payer OTHER ==
[2020-10-04 15:08] LABS: BASO # 0.1 10^3/uL (0.0-0.2); BASO % 0.6 % (0.0-1.0); EOS # 0.1 10^3/uL (0.0-0.5); HEMATOCRIT 42.1 % (36.0-47.0); HEMOGLOBIN 13.5 g/dl (12.0-15.5); LYMPH # 2.6 10^3/uL (1.5-5.0); LYMPH % 32.8 % (24.0-44.0); MEAN CORPUSCULAR HEMOGLOBIN 33.1 pg (27.0-33.0); MEAN CORPUSCULAR HGB CONC 32.1 g/dl (32.0-36.5); MEAN CORPUSCULAR VOLUME 103.2 fl (80.0-96.0); MONO # 0.6 10^3/uL (0.0-0.8); MONO % 7.7 % (0.0-5.0); NEUTROPHILS # 4.6 10^3/uL (1.5-8.5); NEUTROPHILS % 57.8 % (36.0-66.0); PLATELET COUNT, AUTOMATED 281 10^3/uL (150-450); RED BLOOD COUNT 4.08 10^6/uL (4.00-5.40)
[2020-10-04 15:27] LABS: ALBUMIN 4.5 GM/DL (3.2-5.2); ALT/SGPT 28 U/L (12-78); BILIRUBIN,TOTAL 1.5 MG/DL (0.2-1.0); BLOOD UREA NITROGEN 18 MG/DL (7-18); CALCIUM LEVEL 9.7 MG/DL (8.8-10.2); CARBON DIOXIDE LEVEL 31 MEQ/L (21-32); CHLORIDE LEVEL 103 MEQ/L (98-107); CREATININE FOR GFR 0.92 MG/DL (0.55-1.30); GLOMERULAR FILTRATION RATE > 60.0 (>45); GLUCOSE, FASTING 83 MG/DL (70-100); POTASSIUM SERUM 4.3 MEQ/L (3.5-5.1); SODIUM LEVEL 142 MEQ/L (136-145); TOTAL PROTEIN 7.6 GM/DL (6.4-8.2)
[2020-10-04 16:39] LABS: ERYTHROCYTE SEDIMENTATION RATE 25 mm/hr (0-30)
== END ==
LOC: M LAB REF 14:50
PROVIDERS: ATTEND Internal Medicine Cardiovascular Disease
DX: R07.2 Precordial pain (principal); I35.9 Nonrheumatic aortic valve disorder, unspecified; I49.1 Atrial premature depolarization; I11.9 Hypertensive heart disease without heart failure

== ENCOUNTER → 2021-08-10 | Outpatient (CLI) | payer OTHER ==
[2021-08-10 13:16] LABS: BASO # 0.1 10^3/uL (0.0-0.2); BASO % 1.3 % (0.0-1.0); EOS # 0.1 10^3/uL (0.0-0.5); EOS % 2.3 % (0.0-3.0); HEMATOCRIT 37.1 % (36.0-47.0); HEMOGLOBIN 11.9 g/dl (12.0-15.5); LYMPH # 1.7 10^3/uL (1.5-5.0); LYMPH % 32.6 % (24.0-44.0); MEAN CORPUSCULAR HEMOGLOBIN 32.5 pg (27.0-33.0); MEAN CORPUSCULAR HGB CONC 32.1 g/dl (32.0-36.5); MEAN CORPUSCULAR VOLUME 101.4 fl (80.0-96.0); MONO # 0.5 10^3/uL (0.0-0.8); MONO % 8.8 % (2.0-8.0); NEUTROPHILS # 2.8 10^3/uL (1.5-8.5); NEUTROPHILS % 54.6 % (36.0-66.0); PLATELET COUNT, AUTOMATED 258 10^3/uL (150-450); RED BLOOD COUNT 3.66 10^6/uL (4.00-5.40); WHITE BLOOD COUNT 5.2 10^3/uL (4.0-10.0)
[2021-08-10 13:46] LABS: ALBUMIN 3.9 GM/DL (3.2-5.2); ALT/SGPT 23 U/L (12-78); BILIRUBIN,TOTAL 1.5 MG/DL (0.2-1.0); BLOOD UREA NITROGEN 14 MG/DL (7-18); CALCIUM LEVEL 9.2 MG/DL (8.8-10.2); CARBON DIOXIDE LEVEL 29 MEQ/L (21-32); CHLORIDE LEVEL 106 MEQ/L (98-107); CREATININE FOR GFR 0.72 MG/DL (0.55-1.30); ERYTHROCYTE SEDIMENTATION RATE 24 mm/hr (0-30); GLOMERULAR FILTRATION RATE > 60.0 (>45); GLUCOSE, FASTING 99 MG/DL (70-100); NT-PRO BNP 44 PG/ML (<125); POTASSIUM SERUM 4.2 MEQ/L (3.5-5.1); SODIUM LEVEL 140 MEQ/L (136-145); TOTAL PROTEIN 6.8 GM/DL (6.4-8.2)
== END ==
LOC: M PLALAB 09:52
PROVIDERS: ATTEND Internal Medicine Cardiovascular Disease
DX: I49.1 Atrial premature depolarization (principal); R06.00 Dyspnea, unspecified; I35.9 Nonrheumatic aortic valve disorder, unspecified; I11.9 Hypertensive heart disease without heart failure; I27.81 Cor pulmonale (chronic)

== ENCOUNTER → 2021-10-11 | Outpatient (REF) | payer OTHER ==
[~2021-10-11] MED LIST changes: +LOSA50TA28 PO; -LOSA50TA88 PO
[2021-10-11 17:28] LABS: HEMATOCRIT 39.4 % (36.0-47.0); HEMOGLOBIN 12.9 g/dl (12.0-15.5); MEAN CORPUSCULAR HEMOGLOBIN 32.9 pg (27.0-33.0); MEAN CORPUSCULAR HGB CONC 32.7 g/dl (32.0-36.5); MEAN CORPUSCULAR VOLUME 100.5 fl (80.0-96.0); PLATELET COUNT, AUTOMATED 267 10^3/uL (150-450); RED BLOOD COUNT 3.92 10^6/uL (4.00-5.40); WHITE BLOOD COUNT 8.7 10^3/uL (4.0-10.0)
[2021-10-11 17:46] LABS: HEMOGLOBIN A1c 5.4 %
[2021-10-11 18:01] LABS: ALBUMIN 4.4 GM/DL (3.2-5.2); ALT/SGPT 25 U/L (12-78); BILIRUBIN,TOTAL 1.2 MG/DL (0.2-1.0); BLOOD UREA NITROGEN 17 MG/DL (7-18); CALCIUM LEVEL 9.6 MG/DL (8.8-10.2); CARBON DIOXIDE LEVEL 26 MEQ/L (21-32); CHLORIDE LEVEL 104 MEQ/L (98-107); CHOLESTEROL LEVEL 165 MG/DL (<200); CHOLESTEROL RISK RATIO 1.853 (<5); CREATININE FOR GFR 0.79 MG/DL (0.55-1.30); FERRITIN 34 NG/ML (8-252); FREE T4 0.89 NG/DL (0.76-1.46); GLOMERULAR FILTRATION RATE > 60.0 (>45); GLUCOSE, FASTING 89 MG/DL (70-100); HDL CHOLESTEROL 89 MG/DL (>40); IRON (FE) 79 UG/DL (50-170); LDL CHOLESTEROL 51 MG/DL (<100); NON-HDL-C 76 MG/DL; PERCENT SATURATION 20.3 % (13.2-45.0); POTASSIUM SERUM 3.8 MEQ/L (3.5-5.1); SODIUM LEVEL 139 MEQ/L (136-145); TOTAL IRON BINDING CAPACITY 390 UG/DL (250-450); TOTAL PROTEIN 7.3 GM/DL (6.4-8.2); TRIGLYCERIDES LEVEL 124 MG/DL (<150)
[2021-10-11 18:05] LABS: TOTAL 25(OH) VITAMIN D 28.2 NG/ML (30.0-100.0); VITAMIN B12 LEVEL > 2000 PG/ML (247-911)
== END ==
LOC: M SFHCADAM 14:56
PROVIDERS: ATTEND Family Medicine
DX: D50.9 Iron deficiency anemia, unspecified (principal); Z98.84 Bariatric surgery status; E55.9 Vitamin D deficiency, unspecified; R53.82 Chronic fatigue, unspecified; I10 Essential (primary) hypertension; E78.2 Mixed hyperlipidemia

== ENCOUNTER → 2022-08-01 | Outpatient (REF) | payer OTHER ==
[2022-08-01 17:31] LABS: MEAN CORPUSCULAR HEMOGLOBIN 33.4 pg (27.0-33.0); MEAN CORPUSCULAR HGB CONC 32.4 g/dl (32.0-36.5); MEAN CORPUSCULAR VOLUME 103.1 fl (80.0-96.0); PLATELET COUNT, AUTOMATED 258 10^3/uL (150-450); RED BLOOD COUNT 3.59 10^6/uL (4.00-5.40); WHITE BLOOD COUNT 7.2 10^3/uL (4.0-10.0)
[2022-08-01 17:42] LABS: HEMOGLOBIN A1c 5.3 % (4.0-6.0)
[2022-08-01 18:20] LABS: CARBON DIOXIDE LEVEL 26 MMOL/L (20-31); CHLORIDE LEVEL 104 MMOL/L (98-107); FREE T4 0.98 NG/DL (0.89-1.76); POTASSIUM SERUM 4.7 MMOL/L (3.5-5.1); SODIUM LEVEL 141 MMOL/L (136-145); THYROID STIMULATING HORMONE 2.634 uIU/ML (0.55-4.78)
[2022-08-01 18:21] LABS: ALBUMIN 4.3 G/DL (3.2-5.2)
[2022-08-01 18:23] LABS: BILIRUBIN,TOTAL 1.2 MG/DL (0.3-1.2); HDL CHOLESTEROL 79.2 MG/DL (>40)
[2022-08-01 18:24] LABS: TOTAL 25(OH) VITAMIN D 27.6 NG/ML (20.0-100.0); VITAMIN B12 LEVEL 365 PG/ML (211-911)
[2022-08-01 18:25] LABS: BLOOD UREA NITROGEN 19 MG/DL (9-23); TRIGLYCERIDES LEVEL 107 MG/DL (<150)
[2022-08-01 18:26] LABS: ALKALINE PHOSPHATASE 86 U/L (46-116); CALCIUM LEVEL 9.4 MG/DL (8.3-10.6); GLUCOSE, FASTING 82 MG/DL (74-106); MAGNESIUM LEVEL 2.1 MG/DL (1.8-2.4)
[2022-08-01 18:27] LABS: TOTAL PROTEIN 6.9 G/DL (5.7-8.2)
[2022-08-01 18:28] LABS: ALT/SGPT 21 U/L (7.0-40); AST/SGOT 26 U/L (<34); CHOLESTEROL LEVEL 167 MG/DL (<200); CREATININE FOR GFR 0.73 MG/DL (0.55-1.30); GLOMERULAR FILTRATION RATE > 60.0 (>45); LDL CHOLESTEROL 66.4 MG/DL (<100); NON-HDL-C 88 MG/DL
== END ==
LOC: M SFHCADAM 14:46
PROVIDERS: ATTEND Family Medicine
DX: L40.50 Arthropathic psoriasis, unspecified (principal); R53.82 Chronic fatigue, unspecified; E78.2 Mixed hyperlipidemia; E55.9 Vitamin D deficiency, unspecified; Z79.899 Other long term (current) drug therapy; Z98.84 Bariatric surgery status; D50.9 Iron deficiency anemia, unspecified; I47.1 Supraventricular tachycardia; Z79.891 Long term (current) use of opiate analgesic

== ENCOUNTER → 2022-08-04 | Outpatient (CLI) | payer OTHER ==
[2022-08-04 16:38] LABS: ALBUMIN 4.2 G/DL (3.2-5.2); BLOOD UREA NITROGEN 23 MG/DL (9-23); CARBON DIOXIDE LEVEL 29 MMOL/L (20-31); CHLORIDE LEVEL 104 MMOL/L (98-107); CREATININE FOR GFR 0.86 MG/DL (0.55-1.30); GLOMERULAR FILTRATION RATE > 60.0 (>45); GLUCOSE, FASTING 78 MG/DL (74-106); PHOSPHORUS LEVEL 4.3 MG/DL (2.4-5.1); POTASSIUM SERUM 4.2 MMOL/L (3.5-5.1); SODIUM LEVEL 141 MMOL/L (136-145)
== END ==
LOC: M PLALAB 13:04
PROVIDERS: ATTEND Internal Medicine Cardiovascular Disease
DX: I11.9 Hypertensive heart disease without heart failure (principal)

== ENCOUNTER → 2023-01-18 | Outpatient (CLI) | payer OTHER ==
[~2023-01-18] MED LIST changes: -VITA500064 PO; +VITA500065 PO
[2023-01-18 17:21] LABS: BASO # 0.1 10^3/uL (0.0-0.2); BASO % 0.5 % (0.0-1.0); EOS # 0.1 10^3/uL (0.0-0.5); EOS % 1.2 % (0.0-3.0); HEMATOCRIT 36.2 % (36.0-47.0); HEMOGLOBIN 12.1 g/dl (12.0-15.5); LYMPH # 2.2 10^3/uL (1.5-5.0); LYMPH % 20.3 % (24.0-44.0); MEAN CORPUSCULAR HEMOGLOBIN 33.8 pg (27.0-33.0); MEAN CORPUSCULAR HGB CONC 33.4 g/dl (32.0-36.5); MEAN CORPUSCULAR VOLUME 101.1 fl (80.0-96.0); MONO # 0.7 10^3/uL (0.0-0.8); MONO % 6.3 % (2.0-8.0); NEUTROPHILS # 7.8 10^3/uL (1.5-8.5); NEUTROPHILS % 71.4 % (36.0-66.0); PLATELET COUNT, AUTOMATED 245 10^3/uL (150-450); RED BLOOD COUNT 3.58 10^6/uL (4.00-5.40); WHITE BLOOD COUNT 10.9 10^3/uL (4.0-10.0)
[2023-01-18 17:33] LABS: ERYTHROCYTE SEDIMENTATION RATE 86 mm/hr (0-30)
[2023-01-18 17:43] LABS: LIPASE 40 U/L (12-53)
[2023-01-18 17:45] LABS: ALBUMIN 3.8 G/DL (3.2-5.2); ALKALINE PHOSPHATASE 78 U/L (46-116); ALT/SGPT < 9 U/L (7.0-40); AST/SGOT 16 U/L (<34); BILIRUBIN,TOTAL 1.9 MG/DL (0.3-1.2); BLOOD UREA NITROGEN 12 MG/DL (9-23); CALCIUM LEVEL 8.8 MG/DL (8.3-10.6); CARBON DIOXIDE LEVEL 29 MMOL/L (20-31); CHLORIDE LEVEL 106 MMOL/L (98-107); CREATININE FOR GFR 0.73 MG/DL (0.55-1.30); GLOMERULAR FILTRATION RATE > 60.0 (>45); GLUCOSE, FASTING 80 MG/DL (74-106); POTASSIUM SERUM 4.2 MMOL/L (3.5-5.1); SODIUM LEVEL 141 MMOL/L (136-145); TOTAL PROTEIN 6.6 G/DL (5.7-8.2)
== END ==
LOC: M PLALAB 15:35
PROVIDERS: ATTEND Physician Assistant
DX: R10.30 Lower abdominal pain, unspecified (principal)

== ENCOUNTER → 2023-01-19 | Outpatient (CLI) | payer OTHER ==
[~2023-01-19] MED LIST changes: +GASTROGRAFIN SOLUTION 30ML As Ordered ONE; +ISOVUE-370 76% 100ML VIAL As Ordered ONE
== END ==
LOC: M RAD 11:29
PROVIDERS: ATTEND Physician Assistant
DX: R10.30 Lower abdominal pain, unspecified (principal); R79.82 Elevated C-reactive protein (CRP); R70.0 Elevated erythrocyte sedimentation rate; D72.829 Elevated white blood cell count, unspecified; R17 Unspecified jaundice
CPT/HCPCS: 74177; Q9963; Q9967

== ENCOUNTER → 2023-05-17 | Outpatient (CLI) | payer OTHER ==
[~2023-05-17] MED LIST changes: -GASTROGRAFIN SOLUTION 30ML As Ordered ONE; -ISOVUE-370 76% 100ML VIAL As Ordered ONE
== END ==
LOC: M PLAIMG 08:20
PROVIDERS: ATTEND Urology
DX: N20.0 Calculus of kidney (principal)

== ENCOUNTER → 2023-06-25 | Outpatient (CLI) | payer OTHER ==
[2023-06-25 15:40] LABS: APPEARANCE, URINE CLEAR (CLEAR); BACTERIA, URINE AUTO NEGATIVE (NEGATIVE); BILIRUBIN, URINE AUTO NEGATIVE (NEGATIVE); BLOOD, URINE BLOOD 1+ (NEGATIVE); COLOR, URINE YELLOW (YELLOW); GLUCOSE, URINE (UA) AUTO NEGATIVE (NEGATIVE); KETONE, URINE AUTO NEGATIVE (NEGATIVE); LEUKOCYTE ESTERASE, URINE AUTO NEGATIVE (NEGATIVE); NITRITE, URINE AUTO NEGATIVE (NEGATIVE); PROTEIN, URINE AUTO NEGATIVE (NEGATIVE); RBC, URINE AUTO 1 /HPF (0-3); SPECIFIC GRAVITY URINE AUTO 1.008 (1.002-1.035); SQUAMOUS EPITHELIAL CELL UR AU 0 /HPF (0-6); UROBILINOGEN, URINE AUTO 0.2 mg/dL (0.0-2.0); WBC, URINE AUTO 0 /HPF (0-3)
[2023-06-25 15:50] LABS: BASO # 0.1 10^3/uL (0.0-0.2); BASO % 1.2 % (0.0-1.0); EOS # 0.3 10^3/uL (0.0-0.5); EOS % 4.4 % (0.0-3.0); HEMATOCRIT 37.6 % (36.0-47.0); HEMOGLOBIN 12.6 g/dl (12.0-15.5); LYMPH # 1.4 10^3/uL (1.5-5.0); LYMPH % 24.4 % (24.0-44.0); MEAN CORPUSCULAR HEMOGLOBIN 33.8 pg (27.0-33.0); MEAN CORPUSCULAR HGB CONC 33.5 g/dl (32.0-36.5); MEAN CORPUSCULAR VOLUME 100.8 fl (80.0-96.0); MONO # 0.5 10^3/uL (0.0-0.8); MONO % 9.2 % (2.0-8.0); NEUTROPHILS # 3.5 10^3/uL (1.5-8.5); NEUTROPHILS % 60.6 % (36.0-66.0); PLATELET COUNT, AUTOMATED 249 10^3/uL (150-450); RED BLOOD COUNT 3.73 10^6/uL (4.00-5.40); WHITE BLOOD COUNT 5.9 10^3/uL (4.0-10.0)
[2023-06-25 22:34] LABS: BLOOD UREA NITROGEN 17 MG/DL (9-23); CALCIUM LEVEL 9.4 MG/DL (8.3-10.6); CARBON DIOXIDE LEVEL 31 MMOL/L (20-31); CHLORIDE LEVEL 106 MMOL/L (98-107); CREATININE FOR GFR 0.76 MG/DL (0.55-1.30); GLOMERULAR FILTRATION RATE > 60.0 (>45); GLUCOSE, FASTING 91 MG/DL (74-106); POTASSIUM SERUM 4.6 MMOL/L (3.5-5.1); SODIUM LEVEL 143 MMOL/L (136-145)
== END ==
LOC: M PLALAB 10:39
PROVIDERS: ATTEND Urology
DX: N20.0 Calculus of kidney (principal)

== ENCOUNTER → 2023-08-16 | Outpatient (REF) | payer OTHER ==
[2023-08-16 13:07] LABS: HEMATOCRIT 35.8 % (36.0-47.0); HEMOGLOBIN 11.6 g/dl (12.0-15.5); MEAN CORPUSCULAR HGB CONC 32.4 g/dl (32.0-36.5); PLATELET COUNT, AUTOMATED 277 10^3/uL (150-450); RED BLOOD COUNT 3.41 10^6/uL (4.00-5.40); WHITE BLOOD COUNT 6.2 10^3/uL (4.0-10.0)
[2023-08-16 13:15] LABS: APPEARANCE, URINE HAZY (CLEAR); BACTERIA, URINE AUTO NEGATIVE (NEGATIVE); BILIRUBIN, URINE AUTO NEGATIVE (NEGATIVE); BLOOD, URINE BLOOD 3+ (NEGATIVE); COLOR, URINE YELLOW (YELLOW); GLUCOSE, URINE (UA) AUTO NEGATIVE (NEGATIVE); KETONE, URINE AUTO NEGATIVE (NEGATIVE); LEUKOCYTE ESTERASE, URINE AUTO 2+ (NEGATIVE); MUCUS, URINE SMALL (NEGATIVE); NITRITE, URINE AUTO NEGATIVE (NEGATIVE); PROTEIN, URINE AUTO 2+ mg/dL (NEGATIVE); RBC, URINE AUTO TNTC /HPF (0-3); SQUAMOUS EPITHELIAL CELL UR AU 0 /HPF (0-6); UROBILINOGEN, URINE AUTO 0.2 mg/dL (0.0-2.0); WBC, URINE AUTO 36 /HPF (0-3)
[2023-08-16 13:38] LABS: BLOOD UREA NITROGEN 13 MG/DL (9-23); CALCIUM LEVEL 9.6 MG/DL (8.3-10.6); CARBON DIOXIDE LEVEL 27 MMOL/L (20-31); CHLORIDE LEVEL 105 MMOL/L (98-107); CREATININE FOR GFR 0.75 MG/DL (0.55-1.30); GLOMERULAR FILTRATION RATE > 60.0 (>45); GLUCOSE, FASTING 90 MG/DL (74-106); POTASSIUM SERUM 4.5 MMOL/L (3.5-5.1); SODIUM LEVEL 142 MMOL/L (136-145)
== END ==
LOC: M SFHCADAM 10:45
PROVIDERS: ATTEND Family Medicine
DX: Z01.818 Encounter for other preprocedural examination (principal); R30.0 Dysuria; N20.0 Calculus of kidney

== ENCOUNTER → 2024-06-26 | Outpatient (CLI) | payer MEDICAID, MEDICARE, OTHER ==
[2024-06-26 15:02] LABS: BASO # 0.1 10^3/uL (0.0-0.2); BASO % 0.9 % (0.0-1.0); EOS # 0.1 10^3/uL (0.0-0.5); EOS % 2.2 % (0.0-3.0); HEMATOCRIT 35.1 % (36.0-47.0); HEMOGLOBIN 11.4 g/dl (12.0-15.5); LYMPH # 2.4 10^3/uL (1.5-5.0); MEAN CORPUSCULAR HEMOGLOBIN 33.5 pg (27.0-33.0); MEAN CORPUSCULAR HGB CONC 32.5 g/dl (32.0-36.5); MEAN CORPUSCULAR VOLUME 103.2 fl (80.0-96.0); MONO # 0.5 10^3/uL (0.0-0.8); MONO % 7.9 % (2.0-8.0); NEUTROPHILS # 3.4 10^3/uL (1.5-8.5); NEUTROPHILS % 51.7 % (36.0-66.0); PLATELET COUNT, AUTOMATED 269 10^3/uL (150-450); WHITE BLOOD COUNT 6.5 10^3/uL (4.0-10.0)
[2024-06-26 15:35] LABS: ALBUMIN 3.8 G/DL (3.2-5.2); ALKALINE PHOSPHATASE 86 U/L (46-116); ALT/SGPT 13 U/L (7.0-40); AST/SGOT 13 U/L (<34); BILIRUBIN,TOTAL 1.3 MG/DL (0.3-1.2); BLOOD UREA NITROGEN 12 MG/DL (9-23); CALCIUM LEVEL 9.8 MG/DL (8.3-10.6); CARBON DIOXIDE LEVEL 32 MMOL/L (20-31); CHLORIDE LEVEL 108 MMOL/L (98-107); CHOLESTEROL LEVEL 171 MG/DL (<200); CHOLESTEROL RISK RATIO 2.63 (<5); CREATININE FOR GFR 0.65 MG/DL (0.55-1.30); GLOMERULAR FILTRATION RATE > 60.0 (>45); GLUCOSE, FASTING 88 MG/DL (74-106); HDL CHOLESTEROL 64.9 MG/DL (>40); LDL CHOLESTEROL 84.9 MG/DL (<100); NON-HDL-C 106.1 MG/DL; POTASSIUM SERUM 4.4 MMOL/L (3.5-5.1); SODIUM LEVEL 141 MMOL/L (136-145); TOTAL PROTEIN 6.7 G/DL (5.7-8.2); TRIGLYCERIDES LEVEL 106 MG/DL (<150)
== END ==
LOC: M PLALAB 12:08
PROVIDERS: ATTEND Registered Nurse
DX: I11.9 Hypertensive heart disease without heart failure (principal); R07.9 Chest pain, unspecified; E78.2 Mixed hyperlipidemia; I35.8 Other nonrheumatic aortic valve disorders

== ENCOUNTER → 2024-07-15 | Outpatient (CLI) | payer MEDICARE | LOC: M PLAIMG 14:39 | PROVIDERS: ATTEND Registered Nurse | DX: I35.1 Nonrheumatic aortic (valve) insufficiency (principal); R07.9 Chest pain, unspecified ==

== ENCOUNTER → 2024-08-22 | Outpatient (REF) | payer MEDICARE ==
[2024-08-22 13:03] LABS: HEMATOCRIT 36.6 % (36.0-47.0); HEMOGLOBIN 11.8 g/dl (12.0-15.5); MEAN CORPUSCULAR HEMOGLOBIN 32.7 pg (27.0-33.0); MEAN CORPUSCULAR HGB CONC 32.2 g/dl (32.0-36.5); MEAN CORPUSCULAR VOLUME 101.4 fl (80.0-96.0); PLATELET COUNT, AUTOMATED 272 10^3/uL (150-450); RED BLOOD COUNT 3.61 10^6/uL (4.00-5.40); WHITE BLOOD COUNT 6.6 10^3/uL (4.0-10.0)
[2024-08-22 13:15] LABS: HEMOGLOBIN A1c 5.5 % (4.0-6.0)
[2024-08-22 13:33] LABS: ALKALINE PHOSPHATASE 90 U/L (35-104); ALT/SGPT 20 U/L (7.0-40); AST/SGOT 18 U/L (<34); BILIRUBIN,TOTAL 1.3 MG/DL (0.3-1.2); BLOOD UREA NITROGEN 16 MG/DL (9-23); CALCIUM LEVEL 9.7 MG/DL (8.3-10.6); CARBON DIOXIDE LEVEL 30 MMOL/L (20-31); CHLORIDE LEVEL 103 MMOL/L (98-107); CHOLESTEROL LEVEL 175 MG/DL (<200); CHOLESTEROL RISK RATIO 2.33 (<5); CREATININE FOR GFR 0.72 MG/DL (0.55-1.30); GLOMERULAR FILTRATION RATE > 60.0 (>45); GLUCOSE, FASTING 89 MG/DL (74-106); LDL CHOLESTEROL 85.8 MG/DL (<100); MAGNESIUM LEVEL 2.2 MG/DL (1.8-2.4); POTASSIUM SERUM 4.4 MMOL/L (3.5-5.1); SODIUM LEVEL 142 MMOL/L (136-145); TOTAL PROTEIN 7.1 G/DL (5.7-8.2); TRIGLYCERIDES LEVEL 71 MG/DL (<150); URIC ACID 4.5 MG/DL (3.1-7.8)
[2024-08-22 13:35] LABS: FERRITIN 19.3 NG/ML (7.3-270.7)
[2024-08-22 13:36] LABS: C REACTIVE PROTEIN QUANTITATIV < 0.50 MG/DL (<1.0); FOLATE 13.11 NG/ML (>5.4); TOTAL 25(OH) VITAMIN D 31.3 NG/ML (20.0-100.0)
[2024-08-22 13:37] LABS: RHEUMATOID FACTOR QUANT < 3.5 IU/ML (<14); VITAMIN B12 LEVEL 205 PG/ML (211-911)
[2024-08-25 22:12] LABS: CYCLIC CITRULLINATED PEPTIDE < 16 UNITS (<20)
[2024-08-26 07:52] LABS: ANA PATTERN Nuclear, Homogeneous (NEGATIVE); ANA PATTERN 2 Nuclear, Speckled; ANA SCREEN, IFA POSITIVE (NEGATIVE)
== END ==
LOC: M SFHCADAM 10:26
PROVIDERS: ATTEND Family Medicine
DX: E55.9 Vitamin D deficiency, unspecified (principal); I49.3 Ventricular premature depolarization; E78.2 Mixed hyperlipidemia; Z13.1 Encounter for screening for diabetes mellitus; I10 Essential (primary) hypertension; L40.50 Arthropathic psoriasis, unspecified; Z98.84 Bariatric surgery status

== ENCOUNTER → 2024-09-11 | Outpatient (CLI) | payer MEDICARE | LOC: M EKG 12:25 | PROVIDERS: ATTEND Registered Nurse | DX: I49.3 Ventricular premature depolarization (principal) ==

== ENCOUNTER → 2024-11-03 | Outpatient (CLI) | payer MEDICARE | LOC: M EKG 12:45 | PROVIDERS: ATTEND Registered Nurse | DX: I49.3 Ventricular premature depolarization (principal) ==

== ENCOUNTER → 2024-12-12 | Outpatient (REF) | payer MEDICARE | LOC: M SFHCADAM 14:10 | PROVIDERS: ATTEND Physician Assistant | DX: E53.8 Deficiency of other specified B group vitamins (principal) ==

== ENCOUNTER → 2025-04-01 | Outpatient (REF) | payer MEDICARE ==
[2025-04-01 15:25] LABS: BASO # 0.1 10^3/uL (0.0-0.2); BASO % 0.9 % (0.0-1.0); EOS # 0.1 10^3/uL (0.0-0.5); EOS % 1.6 % (0.0-3.0); LYMPH # 2.1 10^3/uL (1.5-5.0); LYMPH % 37.0 % (24.0-44.0); MONO # 0.4 10^3/uL (0.0-0.8); MONO % 7.2 % (2.0-8.0); NEUTROPHILS # 2.9 10^3/uL (1.5-8.5); NEUTROPHILS % 53.1 % (36.0-66.0); PLATELET COUNT, AUTOMATED 256 10^3/uL (150-450)
[2025-04-01 15:29] LABS: ALT/SGPT 18 U/L (7.0-40); AST/SGOT 24 U/L (<34); C REACTIVE PROTEIN QUANTITATIV < 0.50 MG/DL (<1.0); CALCIUM LEVEL 9.0 MG/DL (8.3-10.6); CARBON DIOXIDE LEVEL 28 MMOL/L (20-31); CHLORIDE LEVEL 104 MMOL/L (98-107); COMPLEMENT C4 32.2 MG/DL (12-36); CREATININE FOR GFR 0.64 MG/DL (0.55-1.30); GLOMERULAR FILTRATION RATE > 90.0 (>45); POTASSIUM SERUM 3.7 MMOL/L (3.5-5.1); SODIUM LEVEL 143 MMOL/L (136-145)
[2025-04-01 15:51] LABS: ERYTHROCYTE SEDIMENTATION RATE 20 mm/hr (0-30)
[2025-04-01 16:10] LABS: APPEARANCE, URINE HAZY (CLEAR); BACTERIA, URINE AUTO 1+ (NEGATIVE); BILIRUBIN, URINE AUTO NEGATIVE (NEGATIVE); BLOOD, URINE BLOOD 1+ (NEGATIVE); CALCIUM OXALATE CRYSTALS LARGE; GLUCOSE, URINE (UA) AUTO NEGATIVE (NEGATIVE); KETONE, URINE AUTO NEGATIVE (NEGATIVE); LEUKOCYTE ESTERASE, URINE AUTO 3+ (NEGATIVE); MUCUS, URINE SMALL (NEGATIVE); NITRITE, URINE AUTO NEGATIVE (NEGATIVE); PROTEIN, URINE AUTO NEGATIVE (NEGATIVE); RBC, URINE AUTO 15 /HPF (0-3); SPECIFIC GRAVITY URINE AUTO 1.023 (1.002-1.035); SQUAMOUS EPITHELIAL CELL UR AU 1 /HPF (0-6); TRANSITIONAL EPITHELIAL AUTO <1 /HPF; UROBILINOGEN, URINE AUTO 0.2 mg/dL (0.0-2.0); WBC, URINE AUTO 98 /HPF (0-3)
[2025-04-01 16:17] LABS: TOTAL PROTEIN,RANDOM URINE 20.9 MG/DL (0.0-14.0)
== END ==
LOC: M SFHCRHEU 09:44
PROVIDERS: ATTEND Internal Medicine Rheumatology
DX: R52 Pain, unspecified (principal); R76.8 Other specified abnormal immunological findings in serum; Z87.2 Personal history of diseases of the skin and subcutaneous tissue; M15.4 Erosive (osteo)arthritis; H04.123 Dry eye syndrome of bilateral lacrimal glands

== ENCOUNTER → 2025-04-01 | Outpatient (CLI) | payer MEDICARE | LOC: M PLAIMG 11:18 | PROVIDERS: ATTEND Internal Medicine Rheumatology | DX: R52 Pain, unspecified (principal); R76.8 Other specified abnormal immunological findings in serum; M15.4 Erosive (osteo)arthritis; H04.123 Dry eye syndrome of bilateral lacrimal glands; Z87.2 Personal history of diseases of the skin and subcutaneous tissue; M47.892 Other spondylosis, cervical region ==

== ENCOUNTER → 2025-04-08 | Outpatient (REF) | payer MEDICARE ==
[2025-04-09 12:26] LABS: APPEARANCE, URINE CLEAR (CLEAR); BACTERIA, URINE AUTO NEGATIVE (NEGATIVE); BILIRUBIN, URINE AUTO NEGATIVE (NEGATIVE); BLOOD, URINE BLOOD NEGATIVE (NEGATIVE); GLUCOSE, URINE (UA) AUTO NEGATIVE (NEGATIVE); KETONE, URINE AUTO NEGATIVE (NEGATIVE); LEUKOCYTE ESTERASE, URINE AUTO 1+ (NEGATIVE); NITRITE, URINE AUTO NEGATIVE (NEGATIVE); PROTEIN, URINE AUTO NEGATIVE (NEGATIVE); RBC, URINE AUTO 0 /HPF (0-3); SPECIFIC GRAVITY URINE AUTO 1.011 (1.002-1.035); SQUAMOUS EPITHELIAL CELL UR AU 1 /HPF (0-6); UROBILINOGEN, URINE AUTO 0.2 mg/dL (0.0-2.0); WBC, URINE AUTO 4 /HPF (0-3)
== END ==
LOC: M LAB REF 11:29
PROVIDERS: ATTEND Urology
DX: N13.2 Hydronephrosis with renal and ureteral calculous obstruction (principal)

== ENCOUNTER → 2025-04-14 | Outpatient (REF) | payer MEDICARE ==
[2025-04-14 17:14] LABS: APPEARANCE, URINE HAZY (CLEAR); BACTERIA, URINE AUTO 1+ (NEGATIVE); BILIRUBIN, URINE AUTO NEGATIVE (NEGATIVE); BLOOD, URINE BLOOD NEGATIVE (NEGATIVE); GLUCOSE, URINE (UA) AUTO NEGATIVE (NEGATIVE); KETONE, URINE AUTO NEGATIVE (NEGATIVE); LEUKOCYTE ESTERASE, URINE AUTO 2+ (NEGATIVE); MUCUS, URINE LARGE (NEGATIVE); NITRITE, URINE AUTO NEGATIVE (NEGATIVE); PROTEIN, URINE AUTO 1+ mg/dL (NEGATIVE); RBC, URINE AUTO 5 /HPF (0-3); SPECIFIC GRAVITY URINE AUTO 1.026 (1.002-1.035); SQUAMOUS EPITHELIAL CELL UR AU 2 /HPF (0-6); UROBILINOGEN, URINE AUTO 0.2 mg/dL (0.0-2.0); WBC, URINE AUTO 16 /HPF (0-3)
== END ==
LOC: M LAB REF 16:54
PROVIDERS: ATTEND Urology
DX: N13.2 Hydronephrosis with renal and ureteral calculous obstruction (principal)

== ENCOUNTER → 2025-06-18 | Outpatient (CLI) | payer MEDICARE | LOC: M EKG 09:16 | PROVIDERS: ATTEND Nurse Practitioner Family | DX: I49.3 Ventricular premature depolarization (principal); R00.1 Bradycardia, unspecified ==

== ENCOUNTER → 2025-07-13 | Outpatient (CLI) | payer MEDICARE ==
[2025-07-13 15:34] LABS: BASO # 0.1 10^3/uL (0.0-0.2); BASO % 0.8 % (0.0-1.0); EOS # 0.1 10^3/uL (0.0-0.5); EOS % 1.0 % (0.0-3.0); LYMPH # 2.4 10^3/uL (1.5-5.0); LYMPH % 24.6 % (24.0-44.0); MONO # 0.5 10^3/uL (0.0-0.8); MONO % 5.4 % (2.0-8.0); NEUTROPHILS # 6.7 10^3/uL (1.5-8.5); NEUTROPHILS % 67.9 % (36.0-66.0); PLATELET COUNT, AUTOMATED 301 10^3/uL (150-450)
[2025-07-13 15:41] LABS: CALCIUM LEVEL 9.3 MG/DL (8.3-10.6); CARBON DIOXIDE LEVEL 30 MMOL/L (20-31); CHLORIDE LEVEL 103 MMOL/L (98-107); CREATININE FOR GFR 0.70 MG/DL (0.55-1.30); GLOMERULAR FILTRATION RATE > 90.0 (>45); MAGNESIUM LEVEL 2.0 MG/DL (1.8-2.4); POTASSIUM SERUM 4.5 MMOL/L (3.5-5.1); SODIUM LEVEL 141 MMOL/L (136-145)
== END ==
LOC: M PLALAB 12:28
PROVIDERS: ATTEND Nurse Practitioner Family
DX: I49.3 Ventricular premature depolarization (principal)